=== PATIENT | male | born 1980 | race Hispanic/Latino ===

== ENCOUNTER 2017-08-19 10:31 | Emergency (ER) | payer BC ==
[2017-08-19] MEDS ORDERED: Water For Injection,Sterile 20 ML ONE (11:11)
[2017-08-19] MEDS ORDERED: cefTRIAXone\\ROCEPHIN 1 GM VIAL ONE (11:11)
[2017-08-19] MEDS ORDERED: Adacel (T-DAP) 0.5 ML VIAL ONE (11:11)
== END 2017-08-19 11:55 | disposition home or self-care (01) ==
LOC: BURERS 10:31
DX: L03.115 Cellulitis of right lower limb (principal); I10 Essential (primary) hypertension; Z79.899 Other long term (current) drug therapy
CPT/HCPCS: 90471; 90715; 96372; J0696